=== PATIENT | female | born 1950 | race Caucasian/White ===

== ENCOUNTER 2024-10-25 10:48 | Outpatient (CLI) | payer MEDICARE, BC ==
[2024-10-25 11:34] LABS: APTT 26 SECONDS (22-32); INR 1.1 INR; PROTHROMBIN TIME 11.6 SECONDS (9.0-12.0)
[2024-10-25 11:42] LABS: ALANINE AMINOTRANSFERASE 39 U/L (12-78); ALBUMIN 3.2 G/DL (3.4-5.0); ALBUMIN/GLOBULIN RATIO 0.8 (1.1-1.5); ALKALINE PHOSPHATASE 96 IU/L (46-116); ANION GAP 8 (8-16); ASPARTATE AMINO TRANSFERASE 24 U/L (10-37); BASOPHILS # (AUTO) 0.1 X10'3 (0-0.2); BILIRUBIN,TOTAL 0.3 MG/DL (0.1-1.0); BLOOD UREA NITROGEN 18 MG/DL (7-18); BUN/CREATININE RATIO 21.7 (10.0-20.0); CALCIUM 8.4 MG/DL (8.5-10.1); CHLORIDE 107 MMOL/L (99-107); CREATININE 0.83 MG/DL (0.40-0.90); EOSINOPHILS # (AUTO) 0.2 X10'3 (0-0.9); EOSINOPHILS % (AUTO) 2.7 % (0-6); GLUCOSE 173 MG/DL (70-104); LYMPHOCYTES # (AUTO) 1.5 X10'3 (1.1-4.8); LYMPHOCYTES % (AUTO) 20.8 % (21-51); MEAN PLATELET VOLUME 8.6 FL (7.4-10.4); MONOCYTES # (AUTO) 0.6 X10'3 (0-0.9); NEUTROPHILS # (AUTO) 4.9 X10'3 (1.8-7.7); NEUTROPHILS % (AUTO) 67.5 % (42-75); PLATELET COUNT 245 X10'3 (140-440); POTASSIUM 3.6 MMOL/L (3.5-5.1); PRO BRAIN NATRIURETIC PEPTIDE 277 PG/ML (0-125); SODIUM 140 MMOL/L (135-145); TOTAL CARBON DIOXIDE 25.4 MMOL/L (24-32); TOTAL PROTEIN 7.2 G/DL (6.4-8.2); WHITE BLOOD COUNT 7.3 X10'3 (4.5-11.0); eGFR 68 ML/MIN
[2024-10-25 12:08] LABS: HEMATOCRIT 28.1 % (35.0-45.0); HEMOGLOBIN 8.8 g/dl (12.0-16.0); MEAN CORPUSCULAR HEMOGLOBIN 20.2 PG (27.0-31.0); MEAN CORPUSCULAR HGB CONC 31.4 g/dL (33.0-36.5); MEAN CORPUSCULAR VOLUME 64.2 FL (78-98); RED BLOOD COUNT 4.38 X10'6 (4.20-5.60); RED CELL DISTRIBUTION WIDTH 27.4 % (11.5-14.5)
[2024-10-25 12:38] LABS: PLATELET ESTIMATE NORMAL
[2024-10-25 12:42] LABS: ANISOCYTOSIS 3+; MICROCYTOSIS 2+
--- NOTE | 2024-10-25 21:15 | VASCULAR REPORT ---
PROCEDURE: [facility] VL CAROTID 10/25/2024 11:03 AM INDICATION: Preoperative evaluation for TAVR. COMPARISON: None TECHNIQUE: Real-time grayscale and color Doppler images of the neck arteries were obtained with spect ral analysis performed. FINDINGS: RIGHT: No significant atherosclerotic plaque identified in the carotid. Normal spectral waveforms are seen. ICA peak systolic velocity: 90 cm/s ICA end-diastolic velocity: 24 cm/s ICA/CCA ratios: 1.5 LEFT: No significant atherosclerotic plaque identified in the carotid. Normal spectral waveforms are seen. ICA peak systolic velocity: 103 cm/s ICA end-diastolic velocity: 25 cm/s ICA/CCA ratios: 1.5 VERTEBRAL ARTERIES: Normal antegrade flow is seen bilaterally. Normal spectral waveforms. IMPRESSION: 1. No hemodynamically significant carotid artery stenosis identified bilaterally. Reference: Radiology 2003; 229:340-346 Normal ICA PSV is <125 cm/sec and no plaque or intimal thickening is visible sonographically addition al criteria include ICA/CCA PSV ratio <2.0 and ICA EDV <40 cm/sec <50% ICA stenosis ICA PSV is <125 cm/sec and plaque or intimal thickening is visible sonographically additional criteria include ICA/CCA PSV ratio <2.0 and ICA EDV <40 cm/sec 50-69% ICA stenosis ICA PSV is 125-230 cm/sec and plaque is visible sonographically additional criter ia include ICA/CCA PSV ratio of 2.0-4.0 and ICA EDV of 40-100 cm/sec 70% ICA stenosis but less than near occlusion ICA PSV is >230 cm/sec and visible plaque and luminal narrowing are seen at riggins-scale and color Doppler ultrasound (the higher the Doppler parameters lie above the threshold of 230 cm/sec, the greater the likelihood of severe disease) additional criteria include ICA/CCA PSV ratio >4 and ICA EDV >100 cm/sec
--- NOTE | 2024-10-26 14:35 | RADIOLOGY REPORT ---
Procedure: CT CTA TAVR Reason for study/Clinical History: Chest pain, evaluate for dissection. Comparison Study: None available at time of dictation. Exam Date: 10/25/2024 01:18 PM TECHNIQUE: Multiplanar reformatted images were generated from volumetric data acquired on a multidetector [facility]. Cardiac gating was utilized. Arterial phase images were obtained through the chest, abdomen and pelvis following intravenous administration of contrast material. 100 mL visipaque [address] dose reduction techniques were utilized. 3-D reconstructions were performed on an independent work station. Radiation Dose Information: CT Dose: CTDI volume is 65 mGy. Dose-length product is 2584 mGy*cm FINDINGS: Vascular: Aortic measurements: Aortic annulus: 30.1 x 22.9 mm Sinus of valsalva: right cusp 33.8 mm, left cusp 32.9 mm, non-coronary cusp 29.6 mm Right coronary distance: 19.6 Left coronary distance: 15.1 ST junction 27 mm Ascending aorta 33.1 mm Aortic arch 27.5 mm Descending aorta 23.2 mm Aortic hiatus 23.2 mm Upper abdominal aorta 19.8 mm Minimal abdominal aorta 15.3 mm Right common iliac 9.81 mm, tortuosity index 1.1 Left common iliac 9.91 mm, tortuosity index 1.21 There is normal caliber of aorta. No aortic dissection. Aortic arch anatomy is bovine. There is conve ntional coronary artery anatomy. Scattered calcified atherosclerotic disease. No central pulmonary embolism. There is normal dimension of the main pulmonary artery. Heart is normal. There are no intracardiac filling defects. No pericardial effusion. Mediastinum: Prominent mediastinal lymph nodes measuring up to 13 mm in short axis. Lungs: Low lung volumes with patchy ground-glass opacities throughout both lungs. Septal thickening. Atelectasis and scarring in the lung bases. Pleura: Small right pleural effusion. Chest wall: No acute abnormality. Abdomen and Pelvis: Liver: Normal in appearance. Gallbladder: Surgically absent Spleen: Normal in appearance. Pancreas: Normal in appearance. Adrenals: Normal in appearance. Kidneys: Normal in appearance. Bowel: Normal in appearance. Peritoneum: No free air or free fluid. Lymph nodes: No lymphadenopathy by CT size criteria. Pelvic structures: No pelvic mass. Bones: Normal in appearance. IMPRESSION: 1. TAVR planning with vascular measurements as described above. 2. Low lung volumes with patchy ground-glass opacities in both lungs. Atelectasis and scarring in t he lung bases. Mediastinal lymphadenopathy. Septal thickening and small right pleural effusion. Cons ider congestive failure and/or fluid overload. Clinical correlation and continued follow-up is recom mended. HS:Y
== END 2024-10-25 23:59 | disposition home or self-care (01) ==
LOC: VAS 10:48
PROVIDERS: ATTEND Internal Medicine Cardiovascular Disease
DX: Z01.818 Encounter for other preprocedural examination (principal); J90 Pleural effusion, not elsewhere classified; I35.0 Nonrheumatic aortic (valve) stenosis; R06.02 Shortness of breath; I65.29 Occlusion and stenosis of unspecified carotid artery; Z90.49 Acquired absence of other specified parts of digestive tract; J98.11 Atelectasis; J98.4 Other disorders of lung; I70.8 Atherosclerosis of other arteries; R59.0 Localized enlarged lymph nodes
CPT/HCPCS: 71275; 74174; 75572; 80053; 83880; 85008; 85025; 85610; 85730; 93880; Q9967

== ENCOUNTER 2025-01-29 07:06 | Emergency (ER) | payer MEDICARE, BC ==
[~2025-01-29] VITALS: Ht 165.1 cm; Wt 145.0 kg
[2025-01-29 07:09] VITALS: TEMP 98.6
--- NOTE | 2025-01-29 07:14 | ELECTROCARDIOGRAPH REPORT ---
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 Erick Bello Measurements Intervals [place] Rate: 74 P: 64 [place]: 164 QRS: 80 QRSD: 117 T: 48 QT: 409 QTc: 454 Interpretive Statements Sinus rhythm Nonspecific intraventricular conduction delay Low voltage, precordial leads Electronically Signed On 01-29-2025 20:05:[address] Erick Bello Please click the below link to view image of tracing.
[2025-01-29 07:31] LABS: MEAN PLATELET VOLUME 8.8 FL (7.4-10.4); RED CELL DISTRIBUTION WIDTH 16.3 % (11.5-14.5)
--- NOTE | 2025-01-29 07:34 | RADIOLOGY REPORT ---
CHEST RADIOGRAPH Indication: CP Technique: Single frontal view of the chest was obtained COMPARISON: None FINDINGS: Lines and Tubes: None Lungs: Congestion Pleura: No effusion. No pneumothorax. Cardiomediastinal contours: Cardiomegaly Bones: Unremarkable IMPRESSION: Increased interstital prominence. This may represent pulmonary vascular congestion or viral pneumonia . Clinical correlation advised.
--- NOTE | 2025-01-29 08:02 | Physician Documentation ---
History of Present Illness ~ Chief Complaint: Palpitations Stated Complaint: ARRHYTHMIA Time Seen by MD: 07:55 Mode of Arrival: EMS HPI 74-year-old female with a history of atrial fibrillation presenting with palpitations. She states that at about 1:30 a.m. she woke up from sleep after feeling palpitations in her chest. This lasted for several hours and she got concerned and was brought to the hospital by EMS. She states that now she feels back to normal and no longer has the symptoms. She denies any chest pain, dizziness, headache or any other associated symptoms. She states that she recently also had an aortic valve replacement done this past spring and is on Plavix. Medication Reconciliation Allergies: Coded Allergies: empagliflozin (Verified Allergy, Unknown, 01/29/25) metformin (Verified Allergy, Unknown, 01/29/25) Past Medical History Past Medical History: CVA/TIA/Stroke, Aortic Stenosis, Atrial Fibrillation, Diabetes Past Surgical History: heart valve surgery Review of Systems All Other Systems at this time: Reviewed and Negative Physical Exam Vital Signs: Temperature: 98.6, Source: Oral, Heart Rate: 68, Respiratory Rate: 16, BP: 144/69, Pulse Oximetry: 97, Weight: 145.000 Oxygen Flow Rate: 0 Physical Exam I have reviewed the triage vitals. CONST: Well developed and well nourished. In no acute distress HENT: Head Atraumatic EYES: Pupils are equal, round and reactive to light. Normal conjunctiva NECK: Normal range of motion. Supple. CARDIO: Grade 3/6 Nj systolic murmur present. Normal rate and regular rhythm. No murmurs, rubs, or gallops. S1, S2. PULM/CHEST: No respiratory distress. Lungs clear to auscultation. No wheeze ABD: Soft and nontender. Nondistended. Bowel sounds normal. No guarding. : Exam deferred MSK: No edema. No deformity. NEURO: Alert and oriented to person, place and time. Moving all extremities SKIN: Warm and dry. PSYCH: Normal mood and affect. Good eye contact. Progress Results/Orders Results/Orders Orders - TONY RASHID MD Chest,Single View (01/29/25 07:13) Monitor (01/29/25 07:13) Saline Lock (01/29/25 07:13) Oxygen (01/29/25 07:13) Hs Troponin I W Calculations (01/29/25 10:13) Completed Orders - TONY RASHID MD Electrocardiogram (01/29/25 07:07) Chest,Single View (01/29/25 07:13) Cbc/Diff (01/29/25 07:13) BMP (01/29/25 07:13) PBNP (01/29/25 07:13) Hs Troponin I W Calculations (01/29/25 07:13) Hs Troponin I W Calculations (01/29/25 09:13) Vital Signs 01/29/25 01/29/25 07:09 07:25 Temp 98.6 Pulse 68 Resp 16 16 B/P (MAP) 144/69 Pulse Ox 97 O2 Flow Rate 0 Laboratory Tests Test 01/29/25 07:15 01/29/25 09:20 White Blood Count 6.7 Red Blood Count 5.20 Hemoglobin 14.0 Hematocrit 42.7 Mean Corpuscular Volume 82.0 Mean Corpuscular Hemoglobin 26.9 L Mean Corpuscular Hemoglobin Concent 32.8 L Red Cell Distribution Width 16.3 H Platelet Count 171 Mean Platelet Volume 8.8 Neutrophils (%) (Auto) 65.7 Lymphocytes (%) (Auto) 21.9 Monocytes (%) (Auto) 8.5 Eosinophils (%) (Auto) 3.1 Basophils (%) (Auto) 0.8 Neutrophils # (Auto) 4.4 Lymphocytes # (Auto) 1.5 Monocytes # (Auto) 0.6 Eosinophils # (Auto) 0.2 Basophils # (Auto) 0.1 CBC Comment Sodium Level 139 Potassium Level 4.2 Chloride Level 104 Carbon Dioxide Level 25.5 Anion Gap 10 Blood Urea Nitrogen 16 Creatinine 0.90 Estimated GFR/1.73 m2 62 BUN/Creatinine Ratio 17.8 Glucose Level 136 H Calcium Level 8.9 Troponin I High Sensitivity 18 19 Pro-B-Type Natriuretic Peptide 485 H Albumin 3.6 Chemistry Comments Troponin I High Sens Percent Delta 5 Troponin I Hi Sens Absolute Change 1 EKG/XRAY/CT/US/VASC/MRI EKG : Additional Comment EKG as interpreted by ED indicating atrial fibrillation with a normal rhythm with a rate of 74 beats per minute, normal axis, no ischemia Chest X-Ray : Additional Comments HEST RADIOGRAPH Indication: CP Technique: Single frontal view of the chest was obtained COMPARISON: None FINDINGS: Lines and Tubes: None Lungs: Congestion Pleura: No effusion. No pneumothorax. Cardiomediastinal contours: Cardiomegaly Bones: Unremarkable IMPRESSION: Increased interstital prominence. This may represent pulmonary vascular congestion or viral pneumonia. Clinical correlation advised. Medical Decision Making Additional Information 74-year-old female presenting with atrial fibrillation with a rapid ventricular response. This is not resolved by the time that she presented to the ED. She will be monitored in the ED for several hours without any recurrences of the RVR. Patient's lab work is grossly unremarkable. EKG showing just atrial fibrillation with no signs of any RVR. At this point patient is asymptomatic and her vitals are normal. She has follow up with her industrial truck driver. I see no reason for any inpatient admission at this time. Patient is stable and safe for discharge home. I advised her that she needs to follow up closely with a industrial truck driver in the next week or so. Return immediately to the emergency department with any acutely worsening symptoms. Departure Disposition: 01 HOME / SELF CARE / HOMELESS Impression: Primary Impression: Atrial fibrillation Condition: Stable Discharge Instructions: Atrial Fibrillation, Hkvs-kg-Laxs Additional Instructions: Please follow up closely with industrial truck driver in the next week. Return to the ER with any acutely worsening symptoms. Referrals: NO PRIMARY CARE PROVIDER (PCP) Signature Scribe Signature: 1 Attestation: 1 TONY RASHID MD Jan 29, 2025 08:02
[2025-01-29 08:23] LABS: CREATININE 0.90 MG/DL (0.40-0.90); PRO BRAIN NATRIURETIC PEPTIDE 485 PG/ML (0-125); TOTAL CARBON DIOXIDE 25.5 MMOL/L (24-32); eCRCL 51 ML/MIN; eGFR 62 ML/MIN
[2025-01-29 10:20] VITALS: BP 138/80; PULSE 86; RESP 16; O2SAT 94
== END 2025-01-29 10:22 | disposition home or self-care (01) ==
LOC: ER 07:07
DX: I48.91 Unspecified atrial fibrillation (principal); R06.02 Shortness of breath; E11.9 Type 2 diabetes mellitus without complications; Z86.73 Personal history of transient ischemic attack (TIA), and cerebral infarction without residual deficits
CPT/HCPCS: 36415; 71045; 80048; 83880; 84484; 85025; 93005; 99285

== ENCOUNTER 2025-04-16 23:41 | Emergency (ER) | payer MEDICARE, BC ==
[~2025-04-16] VITALS: Ht 165.1 cm; Wt 149.6 kg
[~2025-04-16 23:41] MED LIST: ASCO10004 PO; ASPI-611 PO; CHOL500044 PO; CLOP75TA34 PO; FURO20TA4 PO; MULT-1085 PO; PANT40TA54 PO; PYRI50TA12 PO; ROSU20TA98 PO; SEMA0.258 SQ; ZINC PO
--- NOTE | 2025-04-16 23:51 | ELECTROCARDIOGRAPH REPORT ---
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 Erick Bello Measurements Intervals [place] Rate: 122 P: 0 [place]: 0 QRS: 85 QRSD: 110 T: -42 QT: 341 QTc: 486 Interpretive Statements Atrial fibrillation Borderline right axis deviation Repol abnrm suggests ischemia, diffuse leads Electronically Signed On 04-19-2025 7:41:[address] Erick Bello Please click the below link to view image of tracing.
[2025-04-17 00:10] LABS: MEAN PLATELET VOLUME 9.6 FL (7.4-10.4); RED CELL DISTRIBUTION WIDTH 16.2 % (11.5-14.5)
--- NOTE | 2025-04-17 00:12 | RADIOLOGY REPORT ---
EXAM: DI CHEST,SINGLE VIEW TECHNIQUE: Single frontal chest radiograph CLINICAL HISTORY: CP COMPARISON: DI CHEST,SINGLE VIEW on DOS: 03/29/25, DI CHEST,TWO VIEWS on DOS: 03/21/25, DI CHEST,SINGLE VIEW on DOS: 01/29/25 FINDINGS/IMPRESSION: Prominence of the interstitial markings. Unchanged cardiomediastinal silhouette. No pleural effusion or pneumothorax. Unchanged osseous structures.
--- NOTE | 2025-04-17 00:23 | Physician Documentation ---
History of Present Illness ~ Chief Complaint: Palpitations Stated Complaint: SOB A ALS Time Seen by MD: 00:21 HPI Patient presents to the emergency room for evaluation of palpitations. She has history of atrial fibrillation reports that she is normally in sinus rhythm but felt herself click into atrial fibrillation this afternoon. The patient was admitted at our facility here recently and had a Watchman device placed. She had denies chest pain. Medication Reconciliation Allergies: Coded Allergies: empagliflozin (Verified Allergy, Unknown, 01/29/25) metformin (Verified Allergy, Unknown, 01/29/25) Scheduled Ascorbic Acid (Vitamin C), 1 TAB PO DAILY, (Reported) Aspirin (Aspir 81), 1 TAB PO DAILY, (Reported) Cholecalciferol (Vitamin D3) (Vitamin D3), 1 TAB PO DAILY, (Reported) Clopidogrel Bisulfate (Clopidogrel), 1 TAB PO DAILY, (Reported) Furosemide (Furosemide), 1 TAB PO DAILY, (Reported) Multivitamin (Multi Vitamin Daily), 1 TAB PO DAILY, (Reported) Pantoprazole Sodium (Pantoprazole Sodium), 1 TAB PO DAILY, (Reported) Pyridoxine HCl (Vitamin B6) (Vitamin B6), 0.5 TAB PO DAILY, (Reported) Rosuvastatin Calcium (Rosuvastatin Calcium), 1 TAB PO HS, (Reported) Semaglutide (Ozempic), 0.25 MG SQ Q7D, (Reported) [Mg With Zinc], 310 MG PO Q48H, (Reported) Past Medical History Past Medical History: CVA/TIA/Stroke, Aortic Stenosis, Atrial Fibrillation, Diabetes Past Surgical History: heart valve surgery Patient History: FH: Parkinson's disease FATHER, , Age: 60 years and older FH: stomach cancer MOTHER, , Age: 60 years and older Review of Systems ROS All review of systems negative except as per HPI Physical Exam Vital Signs: Temperature: 96.5, Source: Temporal, Heart Rate: 130, Respiratory Rate: 16, BP: 156/87, Pulse Oximetry: 98, Weight: 149.600 Oxygen Flow Rate: 0 Physical Exam General: Patient is awake, alert, oriented x4 in no acute distress Head: Normocephalic and atraumatic. Eyes: Conjunctival normal. EOMI. PERRL. ENT: Mucous membranes moist. Neck: Supple, trachea is midline. Chest: Clear to auscultation bilaterally without rales, rhonchi, or wheezes. There is no accessory muscle use or retractions. Cardiac: Tachycardic and irregular without murmurs, gallops, or rubs. Abd: Soft, nondistended, nontender, with normoactive bowel sounds. No guarding, rebound, or rigidity. Extremities: Normal strength. Normal range of motion. No deformities or edema. . Progress Results/Orders Results/Orders Orders - ZAFAR PETE MD Chest,Single View (04/16/25 23:59) Monitor (04/16/25 23:44) Saline Lock (04/16/25 23:44) Oxygen (04/16/25 23:44) Hs Troponin I W Calculations (04/17/25 02:44) Electrocardiogram (04/17/25 ) Diltiazem-D5w 125mg/125ml (Cardizem-D5w (04/17/25 02:50) Page Hospitalist (04/17/25 02:49) Fill Out Med Reconciliation (04/17/25 02:49) Completed Orders - ZAFAR PETE MD Chest,Single View (04/16/25 23:59) Cbc/Diff (04/16/25 23:44) BMP (04/16/25 23:44) PBNP (04/16/25 23:44) Electrocardiogram (04/16/25 23:44) Hs Troponin I W Calculations (04/16/25 23:44) Hs Troponin I W Calculations (04/17/25 01:44) Diltiazem Iv (Cardizem Iv 5mg/Ml Inj.) (04/17/25 00:30) Diltiazem Iv (Cardizem Iv 5mg/Ml Inj.) (04/17/25 01:25) Medications Received in ER Medications (Trade) Dose Ordered Sig/Chana Route PRN Reason Start Time Stop Time Status Last Admin Dose Admin (Cardizem IV 5mg/ ml inj.) 10 mg ONCE ONCE IV 04/17/25 00:30 04/17/25 00:31 DC 04/17/25 01:49 10 MG (Cardizem IV 5mg/ ml inj.) 15 mg ONCE ONCE IV 04/17/25 01:25 04/17/25 01:29 DC 04/17/25 02:49 10 MG Vital Signs 04/16/25 04/16/25 04/16/25 04/17/25 23:42 23:55 23:56 01:31 Temp 96.5 96.5 Pulse 120 130 109 Resp 16 16 20 B/P (MAP) 138/90 156/87 (110) 146/86 (106) Pulse Ox 98 98 98 92 O2 Delivery Nasal Cannula* O2 Flow Rate 2.0 0 2 0 FiO2 28 04/17/25 04/17/25 04/17/25 04/17/25 01:49 02:00 02:30 02:49 Temp 96.5 96.5 Pulse 116 95 103 101 Resp 19 21 B/P (MAP) 131/77 140/69 (92) 101/49 (66) 123/52 Pulse Ox 92 95 O2 Flow Rate 0 0 FiO2 28 04/17/25 04/17/25 02:57 02:57 Temp 96.5 Pulse 101 Resp 20 21 B/P (MAP) 165/92 (116) Pulse Ox 93 O2 Flow Rate 0 FiO2 28 Laboratory Tests Test 04/16/25 23:54 04/17/25 02:18 White Blood Count 8.0 Red Blood Count 4.54 Hemoglobin 13.0 Hematocrit 38.0 Mean Corpuscular Volume 83.7 Mean Corpuscular Hemoglobin 28.5 Mean Corpuscular Hemoglobin Concent 34.1 Red Cell Distribution Width 16.2 H Platelet Count 186 Mean Platelet Volume 9.6 Neutrophils (%) (Auto) 68.1 Lymphocytes (%) (Auto) 22.7 Monocytes (%) (Auto) 6.1 Eosinophils (%) (Auto) 2.5 Basophils (%) (Auto) 0.6 Neutrophils # (Auto) 5.4 Lymphocytes # (Auto) 1.8 Monocytes # (Auto) 0.5 Eosinophils # (Auto) 0.2 Basophils # (Auto) 0.0 CBC Comment Sodium Level 139 Potassium Level 3.9 Chloride Level 106 Carbon Dioxide Level 24.9 Anion Gap 8 Blood Urea Nitrogen 20 H Creatinine 0.91 H Estimated GFR/1.73 m2 61 BUN/Creatinine Ratio 22.0 H Glucose Level 223 H Calcium Level 8.3 L Troponin I High Sensitivity 23 50 Pro-B-Type Natriuretic Peptide 508 H Albumin 3.3 L Chemistry Comments Troponin I High Sens Percent Delta 117 Troponin I Hi Sens Absolute Change 27 EKG/XRAY/CT/US/VASC/MRI EKG : Additional Comment EKG interpreted by myself shows time of 09/14/2047, rate 122, atrial fibrillation, normal axis, nonspecific ST-T changes Chest X-Ray : Additional Comments Exam: CHEST,SINGLE VIEW EXAM: DI CHEST,SINGLE VIEW TECHNIQUE: Single frontal chest radiograph CLINICAL HISTORY: CP COMPARISON: DI CHEST,SINGLE VIEW on DOS: 03/29/25, DI CHEST,TWO VIEWS on DOS: 03/21/25, DI CHEST,SINGLE VIEW on DOS: 01/29/25 FINDINGS/IMPRESSION: Prominence of the interstitial markings. Unchanged cardiomediastinal silhouette. No pleural effusion or pneumothorax. Unchanged osseous structures. Electronically Signed by:TUYET BARRAGAN MD Date & Time: 04/17/25 0009 Medical Decision Making Additional information obtaine: old records Findings Patient presented to the emergency room with chief complaint of racing heart. Differentials include but are not limited to atrial fibrillation ventricular tachycardia that has VT ACS therefore emergent labs and imaging indicated. Patient found to be in AFib RVR. Heart rate improved however she continues to be in atrial fibrillation. After discussing risks benefits that has well as alternatives of cardioversion patient would prefer Cardizem drip in the light of recent cardiac surgery of watchman placement. Differential Dx:Considerations: Include: angina / NM, atrial dysrhythmia, atrial fibrillation, atrial flutter, MAT, PACs, PSVT, sinus tachycardia, WPW, 1st degree AV block, 2nd degree AVB-type 1, 2nd degree AVB-type 2, 3rd degree AV block, PVCs, torsades de pointes, ventricular fibrillation, ventricular tachycardia, other Differential Dx:Considerations: Include anxiety/panic attack, Include digoxin toxicity, Include electrolyte disorder, Include heart failure, Include hyperthyroidism, Include hyperventilation, Include hypoxia, Include pacemaker malfunction, Include pulmonary embolus, Include renal failure, Include other Departure Admitted to Inpatient Unit: yes, to hospitalist Impression: Primary Impression: Atrial fibrillation with RVR Condition: Guarded Referrals: NO PRIMARY CARE PROVIDER (PCP) Signature Scribe Signature: No scribe Attestation: The note accurately reflects work and decisions made by me.Zafar Pete MD 04/17/25 02:50 ZAFAR PETE MD Apr 17, 2025 00:23
[2025-04-17 00:39] LABS: CREATININE 0.91 MG/DL (0.40-0.90); PRO BRAIN NATRIURETIC PEPTIDE 508 PG/ML (0-125); TOTAL CARBON DIOXIDE 24.9 MMOL/L (24-32); eCRCL 50 ML/MIN; eGFR 61 ML/MIN
[2025-04-17] MEDS: diltiazem 5mg/ml 5ml inj. IV ONE ×2 (01:49→02:49)
[2025-04-17] MEDS: diltiazem-D5W 125mg/125ml 125 ML IV SCH (02:50)
--- NOTE | 2025-04-17 03:42 | ELECTROCARDIOGRAPH REPORT ---
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 Erick Bello Measurements Intervals [place] Rate: 69 P: 45 MD: 174 QRS: 80 QRSD: 114 T: 53 QT: 423 QTc: 454 Interpretive Statements Sinus rhythm Borderline intraventricular conduction delay Electronically Signed On 04-19-2025 7:41:[address] Erick Bello Please click the below link to view image of tracing.
[2025-04-17] MEDS: metoprolol succinate 25mg (24-HOUR) SR. Tablet PO ONE (03:43)
[2025-04-17 03:51] VITALS: BP 163/71; PULSE 93; RESP 19; TEMP 96.5; O2SAT 93
== END 2025-04-17 03:52 | disposition home or self-care (01) ==
LOC: ER 23:41 → UNDOADMIN 04-17 03:15 → ED HOLD 04-17 03:15 → ER 04-17 03:52 → UNDODISIN 04-17 03:52
DX: I48.20 Chronic atrial fibrillation, unspecified (principal); Z88.8 Allergy status to other drugs, medicaments and biological substances; Z79.899 Other long term (current) drug therapy; Z79.82 Long term (current) use of aspirin
CPT/HCPCS: 36415; 71045; 80048; 83880; 84484; 85025; 93005; 96374; 96376; 99285; J3490; G0378

== ENCOUNTER 2025-05-02 09:48 | Outpatient (CLI) | payer MEDICARE, BC ==
[2025-05-02 10:16] LABS: MEAN PLATELET VOLUME 9.7 FL (7.4-10.4); RED CELL DISTRIBUTION WIDTH 16.0 % (11.5-14.5)
[2025-05-02 10:34] LABS: CREATININE 0.76 MG/DL (0.40-0.90); TOTAL CARBON DIOXIDE 29.2 MMOL/L (24-32); eGFR 75 ML/MIN
--- NOTE | 2025-05-02 17:24 | RADIOLOGY REPORT ---
CT POST WATCHMAN INDICATION: PRESENCE OF OTHER CARDIAC IMPLANTS AND GRAFTS TECHNIQUE: CT cardiac imaging for pulmonary vein analysis has been obtained. 3- D, MIP, and MPR images obtained. All CT scans at this facility use dose modulation, iterative reconstruction, and/or weight based dosing when appropriate to reduce radiation dose to as low as reasonably achievable. COMPARISON: CT CTA TAVR on DOS: 10/25/24 STUDY QUALITY: Good FINDINGS: LEFT ATRIAL APPENDAGE: Status post left atrial appendage occlusion device placement No abnormal contrast distal to the Nitinol cage. Trace marginal enhancement along the left lateral margin of the PET fabric inferiorly related to a small finger-like projection of the left atrial appendage origin (series 3001, image 29). CARDIAC CHAMBERS: Mild cardiomegaly. Aortic valvular replacement. Prominence of the main pulmonary artery, which may indicate pulmonary hypertension. Question inconspicuous bilateral lower lobe peribronchial thickening which may be seen in the setting of interstitial edema. OTHER: Coronary artery calcifications along the right coronary artery, left main, left anterior descending artery and minimally of the left circumflex. IMPRESSION: No abnormal contrast distal to the Nitinol cage. Trace marginal enhancement along the left lateral margin of the PET fabric inferiorly related to a small finger-like projection of the left atrial appendage origin
== END 2025-05-02 23:59 | disposition home or self-care (01) ==
LOC: RAD 09:48
PROVIDERS: ATTEND Student in an Organized Health Care Education/Training Program
DX: I51.7 Cardiomegaly (principal); Z95.818 Presence of other cardiac implants and grafts; Z95.0 Presence of cardiac pacemaker; I25.10 Atherosclerotic heart disease of native coronary artery without angina pectoris
CPT/HCPCS: 36415; 71275; 75572; 80053; 85025; Q9967